=== PATIENT | female | born 1965 | race Caucasian/White ===

== ENCOUNTER → 2018-10-15 | Outpatient (REF) | payer OTHER | LOC: M SFHCLERA 17:11 | PROVIDERS: ATTEND Physician Assistant | DX: R53.81 Other malaise (principal) ==

== ENCOUNTER 2019-03-05 10:30 | Day surgery (SDC) | payer OTHER ==
[~2019-03-05] VITALS: Ht 170.2 cm; Wt 135.2 kg
[~2019-03-05 10:30] MED LIST changes: -ACET-683 PO; -ALL10TAB28 PO; -ALLO100T PO; -ALLO10TA PO; -BUPR-321 PO; -DIPH25CA PO; -DOXY100T PO; -HYDR-4571 PO; -LOSA25TA14 PO; -PROAAER10 INH; -TERB250T12 PO; -TURM500C PO; -ZYLO300T6 PO
[2019-03-05] MEDS ORDERED: DOXY100T PO (10:47)
[2019-03-05] MEDS ORDERED: ALLO10TA PO (10:47)
[2019-03-05] MEDS ORDERED: ALLO100T PO (10:47)
[2019-03-05] MEDS ORDERED: LOSA25TA14 PO (10:47)
[2019-03-05] MEDS ORDERED: ONDANSETRON 4MG/2ML VIAL (J2405) IV ONE (11:15)
[2019-03-05] MEDS ORDERED: NS 1,000 ML IV ONE (11:15)
[2019-03-05] MEDS: MORPHINE 4 MG/ML 1ML VIAL/SYRINGE (J2270) IV PRN ×2 (11:48→12:37)
[2019-03-05 11:52] LABS: BASO # 0.1 10^3/uL (0.0-0.2); BASO % 0.5 % (0.0-1.0); EOS # 0.1 10^3/uL (0.0-0.50); EOS % 0.6 % (0.0-3.0); HEMATOCRIT 38.7 % (36.0-47.0); HEMOGLOBIN 12.2 g/dl (12.0-15.5); LYMPH % 19.4 % (24.0-44.0); MEAN CORPUSCULAR HEMOGLOBIN 28.7 pg (27.0-33.0); MEAN CORPUSCULAR HGB CONC 31.5 g/dl (32.0-36.5); MEAN CORPUSCULAR VOLUME 91.1 fl (80.0-96.0); MONO # 0.6 10^3/uL (0.0-0.8); MONO % 5.6 % (0.0-5.0); NEUTROPHILS # 7.5 10^3/uL (1.8-7.7); NEUTROPHILS % 73.7 % (36.0-66.0); PLATELET COUNT, AUTOMATED 245 10^3/uL (150-450); RED BLOOD COUNT 4.25 10^6/uL (4.00-5.40); WHITE BLOOD COUNT 10.2 10^3/uL (4.0-10.0)
[2019-03-05 12:16] LABS: ALBUMIN 3.6 GM/DL (3.2-5.2); ALT/SGPT 25 U/L (12-78); BILIRUBIN,DIRECT < 0.1 MG/DL (0.0-0.2); BILIRUBIN,TOTAL 0.2 MG/DL (0.2-1.0); LIPASE 86 U/L (73-393); TOTAL PROTEIN 7.6 GM/DL (6.4-8.2)
[2019-03-05] MEDS ORDERED: ISOVUE-370 76% 100ML VIAL (Q9967) As Ordered ONE (12:23)
--- NOTE | 2019-03-05 12:51 | REP ---
CT abdomen and pelvis with IV contrast, without bowel contrast: There is an appendicolith. The appendix is distended measuring up to 15 mm transverse diameter. There is mild periappendiceal phlegmon. The findings are compatible with acute appendicitis. There is no evidence of appendiceal perforation. The visualized lung [place] are unremarkable. The hepatic parenchyma, gallbladder, pancreas, spleen, adrenals, kidneys, abdominal aorta, bowel and mesentery are otherwise unremarkable. Pelvis: There are multiple left ovarian follicles. The right adnexa is unremarkable. The uterus, and bladder are unremarkable. There is no adenopathy or ascites. There is no diverticulosis or diverticulitis. Impression: Acute non-perforated appendicitis. Electronically Signed by Stevan Cabral MD 03/05/2019 12:44 P
[2019-03-05] MEDS ORDERED: MORPHINE 4 MG/ML 1ML VIAL/SYRINGE (J2270) IV ONE (13:15)
[2019-03-05] MEDS ORDERED: PIPERACILLIN/TAZOBACTAM SOD 3.375 GM in D5W MINI-BAG PLUS 50 ML IV ONE (13:15)
[2019-03-05] MEDS ORDERED: DIPH25CA32 PO (13:49)
[2019-03-05] MEDS ORDERED: TURM500C PO (13:49)
[2019-03-05] MEDS ORDERED: ACET-683 PO (13:49)
[2019-03-05] MEDS ORDERED: TERB250T12 PO (13:49)
[2019-03-05] MEDS ORDERED: BUPR-321 PO (13:49)
[2019-03-05] MEDS ORDERED: PROAAER10 INH (13:49)
[2019-03-05] MEDS ORDERED: ZYLO300T6 PO (13:49)
[2019-03-05] MEDS ORDERED: ALL10TAB28 PO (13:49)
[2019-03-05] MEDS ORDERED: BUPIVACAINE/EPIN 0.25% 30 ML VIAL As Ordered ONE (14:52)
[2019-03-05] MEDS ORDERED: MORPHINE 2 MG/ML 1ML SYRINGE (J2270) IV PRN (15:00)
[2019-03-05] MEDS ORDERED: ONDANSETRON 4MG/2ML VIAL (J2405) IV PRN ×3 (15:00→23:15)
[2019-03-05] MEDS: LR 1,000 ML IV SCH ×2 (15:00→22:02)
[2019-03-05] MEDS ORDERED: NORCO, ANEXSIA 5/325MG TABLET (HYDROcodone/ACETAMINOPHEN) PO PRN (19:00)
[2019-03-05] MEDS ORDERED: ACETAMINOPHEN TAB 650MG DOSE (2X325MG) PO PRN (19:00)
[2019-03-05] MEDS ORDERED: KETOROLAC 30 MG/ML VIAL (J1885) IV PRN (19:00)
[2019-03-05] MEDS ORDERED: ALBUTEROL 90 MCG/ACT 8GM HFA INHALER INH PRN (19:00)
[2019-03-05] MEDS ORDERED: PROPOFOL 200 MG/20 ML VIAL As Ordered ONE (19:06)
[2019-03-05] MEDS ORDERED: fentaNYL 100 MCG/2 ML INJECTION (J3010) As Ordered ONE (19:06)
[2019-03-05] MEDS ORDERED: ROCURONIUM BROMIDE 50 MG/5 ML VIAL As Ordered ONE (19:06)
[2019-03-05] MEDS ORDERED: LIDOCAINE 2% INJ 100 MG/5 ML SDV (FOR ANES.) As Ordered ONE (19:06)
[2019-03-05] MEDS ORDERED: MIDAZOLAM INJ 2 MG/2 ML VIAL (J2250) As Ordered ONE (19:07)
--- NOTE | 2019-03-05 19:22 | CR ---
DATE OF ADMISSION: 03/05/2019 REASON FOR CONSULT: Abdominal pain. HISTORY OF PRESENT ILLNESS: The patient is a 53-year-old female who presents with right lower quadrant abdominal pain that started yesterday. She had some nausea with it. No fevers or chills. No change in bowel movements or problems with urination. The pain in the abdomen has been getting progressively worse, so she came in to the emergency room this afternoon. CT scan was obtained, which showed acute appendicitis; therefore I was called to evaluate. On exam, she is still significantly tender, lying uncomfortably in bed. Any movement makes the pain significantly worse. No recent travel or trauma. No recent changes in medications or diet. No recent illnesses. PAST MEDICAL HISTORY: 1. Hypertension. 2. Depression. 3. Sleep apnea. 4. Enlarged heart. 5. Fibromyalgia. PAST SURGICAL HISTORY: 1. Tonsillectomy. 2. Foot surgery. 3. Hernia repair as a child. ALLERGIES: None. HOME MEDICATIONS: Please see medical records. REVIEW OF SYSTEMS: Per positives in history of present illness (HPI). PHYSICAL EXAMINATION: GENERAL: Alert and oriented times three, in no acute distress. VITAL SIGNS: Temperature 98.4, pulse was 107, respirations 23, blood pressure 143/62, pulse oximetry 97% room air. HEENT: Pupils equally round and react to light and accommodation. HEART: S1, S2. Regular rate and rhythm. LUNGS: Clear to auscultation bilaterally. ABDOMEN: Soft, tender palpation right lower quadrant only. Localized guarding. No rebounding or rigidity. EXTREMITIES: No clubbing, cyanosis or edema. LABORATORY DATA: White count 10.2, hemoglobin 12.2, platelets 245. IMAGING STUDIES: CT abdomen and pelvis shows dilated appendix up to 15 mm in diameter with a mid-periappendiceal phlegmon. Findings compatible with acute appendicitis. No evidence of appendiceal perforation. ASSESSMENT AND PLAN: The patient is 53-year-old female acute appendicitis. RECOMMENDATIONS: Proceed with laparoscopic, possible open appendectomy. Risks, benefits of procedure not limited to, but including bleeding, infection, hernia formation, damage to surrounding structures, need for further surgery were discussed in detail with the patient. Informed consent was obtained. Procedure was planned.
[2019-03-05] MEDS ORDERED: dexameTHASONE 4 MG/ML 1ML VIAL (J1100) As Ordered ONE (19:29)
[2019-03-05] MEDS ORDERED: ACETAMINOPHEN 1000MG 100ML IV BTL (OFIRMEV) (J0131 PER 10MG) As Ordered ONE (19:32)
[2019-03-05] MEDS ORDERED: METOCLOPRAMIDE INJ 10MG/2ML VIAL (J2765) As Ordered ONE (19:32)
[2019-03-05] MEDS ORDERED: ONDANSETRON 4MG/2ML VIAL (J2405) As Ordered ONE (19:34)
[2019-03-05] MEDS ORDERED: KETOROLAC 60 MG/2 ML VIAL (J1885) As Ordered ONE (19:34)
[2019-03-05] MEDS ORDERED: SUGAMMADEX SODIUM 500 MG/5 ML VIAL (BRIDION) As Ordered ONE (19:34)
[2019-03-05] MEDS ORDERED: METOCLOPRAMIDE INJ 10MG/2ML VIAL (J2765) IV PRN (20:30)
[2019-03-05] MEDS ORDERED: fentaNYL 100 MCG/2 ML INJECTION (J3010) IV PRN (20:30)
[2019-03-05] MEDS ORDERED: LR 1,000 ML IV SCH (20:30)
[2019-03-05] MEDS ORDERED: PERCOCET 5MG/325MG TAB PO PRN (20:30)
[2019-03-05] MEDS ORDERED: MEPERIDINE INJ 25 MG/ML VIAL (J2175) IV PRN (20:30)
[2019-03-05] MEDS ORDERED: diphenhydrAMINE 25 MG CAP PO SCH (21:00)
--- NOTE | 2019-03-05 21:09 | RO ---
DATE OF PROCEDURE: 03/05/2019 PREOPERATIVE DIAGNOSIS: Acute appendicitis. POSTOPERATIVE DIAGNOSIS: Acute appendicitis. OPERATIVE PROCEDURE: Laparoscopic appendectomy. SURGEON: Stevan Hutchins DO PAD MACHINE OPERATOR: None. ANESTHESIA: General. ESTIMATED BLOOD LOSS: 5 mL COMPLICATIONS: None. INDICATION FOR PROCEDURE: Patient is a 53-year-old female who presents with signs and symptoms consistent with right lower quadrant abdominal pain and acute appendicitis. Recommendation was to proceed with lap, possible open appendectomy. Risks and benefits of the procedure not limited to but including bleeding, infection, hernia formation, damage to surrounding structure, need for further surgery were discussed in detail with the patient and informed consent was obtained and procedure planned. DESCRIPTION OF PROCEDURE: The patient was brought back to operating room seven and after sufficient sedation the abdomen was sterilely prepped and draped. Next, a time-out was done to confirm proper patient and proper procedure. Following that, a 5 mm incision was made in the left lower quadrant. Veress needle was inserted and the abdomen was insufflated to 50 mmHg. Next, a Veress needle was removed and a 5 mm OptiVu port was used to gain access to the abdomen. Upon entering, I was able to place another 8 mm port supraumbilically and another 5 mm port suprapubically. Next, the right lower quadrant was evaluated, cecum was elevated identifying a partially necrotic appendix. The appendix was able to be bluntly dissected away from the lateral abdominal wall and the posterior peritoneum. Once it was done, I was able to dissect through the mesoappendix using the Enseal all the way to the base of the appendix. The base of the appendix was healthy and did not appear to be too inflamed. I was then able to place two PDS Endoloops around the base and amputate it using the Enseal. The appendix was then placed in a 5 mm EndoCatch bag and brought out through the supraumbilical port site. Abdomen was then desufflated. Skin incisions closed with #4-0 Vicryl subcuticular sutures. The abdomen was cleaned and dried. Steri-Strips, 4x4 and tape were applied thus ending the procedure.
[2019-03-05 21:10] VITALS: BP 162/87
[2019-03-05 21:40] VITALS: BP 154/74
[2019-03-05] MEDS ORDERED: MORPHINE 4 MG/ML 1ML VIAL/SYRINGE (J2270) IV PRN ×2 (22:00→23:00)
[2019-03-05] MEDS: PIPERACILLIN/TAZOBACTAM SOD 3.375 GM in D5W MINI-BAG PLUS 50 ML IV SCH (22:01)
[2019-03-05] MEDS: PREGABALIN 75 MG CAP(LYRICA) PO SCH (22:02)
[2019-03-05] MEDS: SENOKOT S TAB PO SCH (22:02)
[2019-03-05 22:10] VITALS: BP 149/81
[2019-03-05 23:10] VITALS: BP 125/60
[2019-03-06] VITALS (7 sets, daily range): BP systolic 122–143; BP diastolic 64–77; O2SAT 93–96
[2019-03-06] MEDS: PIPERACILLIN/TAZOBACTAM SOD 3.375 GM in D5W MINI-BAG PLUS 50 ML IV SCH ×2 (01:53→06:42)
[2019-03-06 05:57] LABS: HEMATOCRIT 36.1 % (36.0-47.0); HEMOGLOBIN 11.3 g/dl (12.0-15.5); MEAN CORPUSCULAR HEMOGLOBIN 28.8 pg (27.0-33.0); MEAN CORPUSCULAR HGB CONC 31.3 g/dl (32.0-36.5); MEAN CORPUSCULAR VOLUME 91.9 fl (80.0-96.0); PLATELET COUNT, AUTOMATED 239 10^3/uL (150-450); RED BLOOD COUNT 3.93 10^6/uL (4.00-5.40); WHITE BLOOD COUNT 10.7 10^3/uL (4.0-10.0)
[2019-03-06] MEDS: LR 1,000 ML IV SCH (06:42)
[2019-03-06] MEDS: PREGABALIN 75 MG CAP(LYRICA) PO SCH (08:22)
[2019-03-06] MEDS: SENOKOT S TAB PO SCH (08:22)
[2019-03-06] MEDS ORDERED: PANTOPRAZOLE 40MG TAB (PROTONIX) PO SCH (09:00)
[2019-03-06] MEDS ORDERED: ENOXAPARIN 40 MG/0.4 ML SYRINGE (J1650) SC SCH (09:00)
[2019-03-06] MEDS ORDERED: CETIRIZINE (ZyrTEC) 10 MG TAB PO SCH (09:00)
[2019-03-06] MEDS ORDERED: LOSARTAN 25 MG TAB PO SCH (09:00)
[2019-03-06] MEDS ORDERED: ALLOPURINOL 300 MG TAB PO SCH (09:00)
[2019-03-06] MEDS ORDERED: HYDR-4571 PO (10:24)
--- NOTE | 2019-03-06 11:23 | DSES ---
DATE OF ADMISSION: 03/05/2019 DATE OF DISCHARGE: ADMISSION DIAGNOSIS: Appendicitis. DISCHARGE DIAGNOSIS: Appendicitis. HOSPITAL COURSE: The patient is a 53-year-old female who presented with appendicitis and was brought the operating room the evening of 03/05/2019 for a lap appendectomy. Postoperatively, she has been doing well, tolerating diet, ambulating around and urinating without any problems. Abdominal pain is much improved, just some slight tenderness at the incision sites as expected. Dressings are all clean, dry and intact. All of her questions are answered. She will be discharged home today. She does not require any further antibiotics. She has Tylenol and Motrin to take as needed for pain. I also gave her some [place] to take as needed for a couple of days. She can shower starting tomorrow. No baths for 5 days. No lifting more than 20 pounds for 2 weeks, and she will followup me in the office in 2 weeks for further evaluation.
== END 2019-03-06 11:16 | disposition home or self-care (01) ==
LOC: M ED 10:30 → M SDC 10:31 → M MSPAV 21:10 → M SDC 03-06 11:16
PROVIDERS: ATTEND Surgery
DX: K35.890 Other acute appendicitis without perforation or gangrene (principal); J45.909 Unspecified asthma, uncomplicated; I10 Essential (primary) hypertension; K21.9 Gastro-esophageal reflux disease without esophagitis; D64.9 Anemia, unspecified; G47.30 Sleep apnea, unspecified; M79.7 Fibromyalgia; F32.9 Major depressive disorder, single episode, unspecified; E66.9 Obesity, unspecified; Z79.899 Other long term (current) drug therapy
CPT/HCPCS: 36415; 44970; 74177; 80047; 80076; 81001; 81002; 83690; 85025; 85027; 87086; 87661; 88302; 96361; 96365; 96372; 96375; 96376; 99284; G0463; J0131; J1100; J1650; J1885; J2250; J2270; J2405; J2543; J2765; J3010; Q9967

== ENCOUNTER → 2019-03-05 | Outpatient (REF) | payer OTHER ==
[~2019-03-05] MED LIST: ACET-683 PO; ACET-907 PO; ALL10TAB28 PO; ALLO100T PO; ALLO10TA PO; BENA25CA4 PO; BUPR-321 PO; CETI10CH PO; DIPH25CA PO; DOXY100T PO; HYDR-4571 PO; LOSA25TA14 PO; LYRI150C PO; MELA10TA6 PO; PANT40TA3 PO; PARO20TA4 PO; PARO30TA3 PO; PROAAER10 INH; TERB250T12 PO; TURM500C PO; WELL100T2 PO; ZYLO300T6 PO; lamisil
[2019-03-05 21:46] LABS: CHLAMYDIA DNA AMPLIFICATION NEGATIVE (NEGATIVE); GC DNA AMPLIFICATION NEGATIVE (NEGATIVE)
== END ==
LOC: M SFHCLERA 09:49
PROVIDERS: ATTEND Nurse Practitioner Family
DX: N39.0 Urinary tract infection, site not specified (principal)

== ENCOUNTER 2019-07-16 07:19 | Day surgery (SDC) | payer OTHER ==
[~2019-07-16] VITALS: Ht 170.2 cm; Wt 130.2 kg
[~2019-07-16 07:19] MED LIST changes: +ACET-683 PO; +ALL10TAB29 PO; +ALLO100T PO; +ALLO10TA PO; +BUPR-321 PO; +BUPR150T3 PO; +CRES10TA PO; +D 50CAP PO; +DIPH25CA32 PO; +DOXY100T PO; +HYDR-4571 PO; +LORA-674 PO; +LOSA25TA14 PO; +NS 1,000 ML IV ONE; +PROAAER10 INH; +SYNT75TA PO; +TERB250T12 PO; +TURM500C PO; +ZYLO300T6 PO
[2019-07-16] MEDS ORDERED: PROPOFOL 200 MG/20 ML VIAL As Ordered ONE (08:09)
[2019-07-16] MEDS ORDERED: LIDOCAINE 2% INJ 100 MG/5 ML SDV (FOR ANES.) As Ordered ONE (08:09)
--- NOTE | 2019-07-16 08:22 | ROOR ---
Patient Name: Nelia Rebollar Procedure Date: 07/16/2019 8:05 AM Date of : 1965 Age: 54 Room: [facility] Gender: Female Note Status: Finalized Procedure: Upper Endoscopy + Biopsies Indications: Heartburn, Exclusion of Keene's esophagus Providers: Horacio Dotson MD Referring MD: MAGGY IWNTER MD Requesting Provider: Medicines: Monitored Anesthesia Care Complications: No immediate complications. Procedure: Pre-Anesthesia Assessment: - The heart rate, respiratory rate, oxygen saturations, blood pressure, adequacy of pulmonary ventilation, and response to care were monitored throughout the procedure. The Endoscope was introduced through the mouth, and advanced to the second part of duodenum. The upper GI endoscopy was accomplished without difficulty. The patient tolerated the procedure well. Findings: The Z-line was variable and was found 40 cm from the incisors. Multiple biopsies were obtained with cold forceps for evaluation to rule out Keene's Esophagus randomly at the gastroesophageal junction. A small hiatal hernia was present. No other significant abnormalities were identified in a careful examination of the stomach. The exam of the duodenum was otherwise normal. Impression: - Z-line variable, 40 cm from the incisors. - Small hiatal hernia. - Multiple biopsies were obtained at the gastroesophageal junction. - The examination was otherwise normal. Recommendation: - Patient has a contact number available for emergencies. The signs and symptoms of potential delayed complications were discussed with the patient. Return to normal activities tomorrow. Written discharge instructions were provided to the patient. - High fiber diet. - Discharge patient to home. - Follow an antireflux regimen. - Continue present medications. - Await pathology results. - Telephone GI clinic for pathology results in 1 week. - Return to referring physician. - The findings and recommendations were discussed with the patient's family. Horacio Dotson MD Horacio Dotson MD 07/16/2019 8:21:49 AM Electronically signed by Horacio Dotson MD Number of Addenda: 0 Note Initiated On: 07/16/2019 8:05 AM Estimated Blood Loss: Estimated blood loss: none.
--- NOTE | 2019-07-16 08:35 | ROOR ---
Patient Name: Nelia Rebollar Procedure Date: 07/16/2019 8:05 AM Date of : 1965 Age: 54 Room: [facility] Gender: Female Note Status: Finalized Procedure: Total Colonoscopy to Cecum Indications: Screening for colorectal malignant neoplasm Providers: Horacio Dotson MD Referring MD: MAGGY WINTER MD Requesting Provider: Medicines: Monitored Anesthesia Care Complications: No immediate complications. Procedure: Pre-Anesthesia Assessment: - The heart rate, respiratory rate, oxygen saturations, blood pressure, adequacy of pulmonary ventilation, and response to care were monitored throughout the procedure. The Colonoscope was introduced through the anus and advanced to the cecum, identified by appendiceal orifice and ileocecal valve. The colonoscopy was performed without difficulty. The patient tolerated the procedure well. The quality of the bowel preparation was excellent. Findings: The perianal and digital rectal examinations were normal. Non-bleeding internal hemorrhoids were found during retroflexion. The hemorrhoids were small and Grade I (internal hemorrhoids that do not prolapse). No other significant abnormalities were identified in a careful examination of the remainder of the colon. The exam was otherwise without abnormality on direct and retroflexion views. Impression: - Non-bleeding internal hemorrhoids. - The examination was otherwise normal on direct and retroflexion views. - No specimens collected. - The exam was otherwise normal to the cecum. Recommendation: - Patient has a contact number available for emergencies. The signs and symptoms of potential delayed complications were discussed with the patient. Return to normal activities tomorrow. Written discharge instructions were provided to the patient. - High fiber diet. - Discharge patient to home. - Continue present medications. - Repeat colonoscopy in 10 years for screening purposes. - Return to referring physician. - The findings and recommendations were discussed with the patient's family. Horacio Dotson MD Horacio Dotson MD 07/16/2019 8:35:20 AM Electronically signed by Horacio Dotson MD Number of Addenda: 0 Note Initiated On: 07/16/2019 8:05 AM Estimated Blood Loss: Estimated blood loss: none.
[2019-07-16 08:55] VITALS: BP 135/79
== END 2019-07-16 09:10 | disposition home or self-care (01) ==
LOC: M OPP 07:19
PROVIDERS: ATTEND Internal Medicine Gastroenterology
DX: Z12.11 Encounter for screening for malignant neoplasm of colon (principal); K64.0 First degree hemorrhoids; K22.8 Other specified diseases of esophagus; K44.9 Diaphragmatic hernia without obstruction or gangrene; R12 Heartburn; Z79.899 Other long term (current) drug therapy
CPT/HCPCS: 43239; 88305; G0121

== ENCOUNTER 2020-08-05 20:13 | Emergency (ER) | payer OTHER ==
[~2020-08-05] VITALS: Ht 170.2 cm; Wt 132.3 kg
[~2020-08-05 20:13] MED LIST changes: -ALL10TAB29 PO; -BUPR-321 PO; +BUPR100T10 PO; +CETI-24 PO; -NS 1,000 ML IV ONE; +PANT40TA29 PO; -PANT40TA3 PO
[2020-08-05 20:14] VITALS: BP 121/82
[2020-08-05] MEDS ORDERED: ZYLO300T6 PO (20:23)
[2020-08-05] MEDS ORDERED: PREGABALIN 75 MG CAP(LYRICA) PO STA (20:54)
[2020-08-05] MEDS ORDERED: LYRI150C PO (21:18)
== END 2020-08-05 21:32 | disposition home or self-care (01) ==
LOC: M ED 20:13
DX: R05 Cough (principal); Z76.0 Encounter for issue of repeat prescription; F32.9 Major depressive disorder, single episode, unspecified; E03.9 Hypothyroidism, unspecified; K21.9 Gastro-esophageal reflux disease without esophagitis; Z91.018 Allergy to other foods; Z79.899 Other long term (current) drug therapy